=== PATIENT | male | born 1975 | race Hispanic/Latino ===

== ENCOUNTER 2018-07-23 08:42 | Emergency (ER) | payer OTHER ==
[2018-07-23 09:39] LABS: BASOPHILS % (AUTO) 0.4 % (0.0-5.0); EOSINOPHILS % (AUTO) 1.5 % (0.0-8.0); HEMATOCRIT 45.1 % (42-54); LYMPHOCYTES % (AUTO) 30.3 % (21.0-51.0); MEAN CORPUSCULAR HEMOGLOBIN 30.1 pg (27.0-33.0); MEAN CORPUSCULAR HGB CONC 33.5 g/dL (32.0-36.0); MEAN CORPUSCULAR VOLUME 89.8 fL (79-99); MONOCYTES % (AUTO) 10.8 % (3.0-13.0); PLATELET COUNT (AUTO) 216 K/uL (130-400); RED BLOOD CELL COUNT(AUTO) 5.02 MIL/uL (4.50-6.20); RED CELL DISTRIBUTION WIDTH 12.9 % (11.0-15.5); WHITE BLOOD COUNT (AUTO) 5.8 K/uL (4.8-10.8)
[2018-07-23 09:40] LABS: APPEARANCE,URINE CLEAR (CLEAR); BILIRUBIN,URINE NEGATIVE (NEGATIVE); COLOR,URINE YELLOW (YELLOW); GLUCOSE, URINE (UA) NEGATIVE (NEGATIVE); KETONES,URINE NEGATIVE (NEGATIVE); LEUKOCYTE ESTERASE ,URINE NEGATIVE (NEGATIVE); NITRATE,URINE NEGATIVE (NEGATIVE); OCCULT BLOOD,URINE NEGATIVE (NEGATIVE); PROTEIN,URINE NEGATIVE (NEGATIVE); UROBILINOGEN,URINE 0.2 mg/dL (0.2-1.0)
[2018-07-23 09:47] LABS: CREATININE 0.9 mg/dL (0.5-1.5); POTASSIUM 4.3 mmol/L (3.5-5.1)
[2018-07-23 09:48] LABS: AMPHET/METH SCREEN,URINE NEGATIVE (NEGATIVE); BARBITURATE SCREEN, URINE NEGATIVE (NEGATIVE); BENZODIAZEPINES SCREEN,URINE NEGATIVE (NEGATIVE); CANNABINOID SCREEN,URINE NEGATIVE (NEGATIVE); COCAINE SCREEN,URINE NEGATIVE (NEGATIVE); OPIATE SCREEN,URINE NEGATIVE (NEGATIVE); PHENCYCLIDINE SCREEN,URINE NEGATIVE (NEGATIVE)
[2018-07-23 09:52] LABS: ALBUMIN 3.6 g/dL (3.5-5.0); BILIRUBIN,DIRECT 0.1 mg/dL (0.0-0.3); BILIRUBIN,TOTAL 0.3 mg/dL (0.2-1.0)
[2018-07-23] MEDS ORDERED: FAMOTIDINE 20MG TAB 20 MG TAB ONE (09:56)
[2018-07-23] MEDS ORDERED: DICYCLOMINE HCL 10 MG/ML 2ML AMP IM ONE (09:56)
== END 2018-07-23 10:48 | disposition home or self-care (01) ==
LOC: EDH 08:42
DX: K52.9 Noninfective gastroenteritis and colitis, unspecified (principal); I10 Essential (primary) hypertension
CPT/HCPCS: 36415; 80048; 80076; 80305; 81003; 83690; 85025; 96372; 99284; J0500

== ENCOUNTER 2021-05-20 20:30 | Emergency (ER) | payer OTHER, SELFPAY ==
[~2021-05-20] VITALS: Ht 175.3 cm; Wt 93.0 kg
[2021-05-20 21:17] LABS: BASOPHILS % (AUTO) 0.3 % (0.0-5.0); HEMATOCRIT 48.2 % (42-54); LYMPHOCYTES % (AUTO) 4.6 % (21.0-51.0); MEAN CORPUSCULAR HEMOGLOBIN 29.4 pg (27.0-33.0); MEAN CORPUSCULAR HGB CONC 32.2 g/dL (32.0-36.0); MEAN CORPUSCULAR VOLUME 91.5 fL (79-99); MONOCYTES % (AUTO) 3.2 % (3.0-13.0); NEUTROPHILS % (AUTO) 91.4 % (40.0-77.0); PLATELET COUNT (AUTO) 301 K/uL (130-400); RED BLOOD CELL COUNT(AUTO) 5.27 MIL/uL (4.50-6.20); RED CELL DISTRIBUTION WIDTH 12.7 % (11.0-15.5)
[2021-05-20 21:22] LABS: APPEARANCE,URINE CLEAR (CLEAR); BILIRUBIN,URINE SMALL (NEGATIVE); COLOR,URINE YELLOW (YELLOW); GLUCOSE, URINE (UA) NEGATIVE (NEGATIVE); KETONES,URINE NEGATIVE (NEGATIVE); LEUKOCYTE ESTERASE ,URINE NEGATIVE (NEGATIVE); NITRATE,URINE NEGATIVE (NEGATIVE); OCCULT BLOOD,URINE NEGATIVE (NEGATIVE); PH,URINE 5.5 (5.0-8.0); PROTEIN,URINE TRACE mg/dL (NEGATIVE)
[2021-05-20 21:27] LABS: POTASSIUM 3.9 mmol/L (3.5-5.1)
[2021-05-20] MEDS ORDERED: FAMOTIDINE 20MG VIAL IV ONE (21:30)
[2021-05-20] MEDS ORDERED: 0.9%NACL 1000ML 1,000 ML IV ONE ×2 (21:30→22:00)
[2021-05-20] MEDS ORDERED: DICYCLOMINE 20MG (10MG/ML) AMP IM ONE (21:30)
[2021-05-20] MEDS ORDERED: ONDANSETRON 4MG INJ IVP ONE (21:30)
[2021-05-20 21:31] LABS: ALBUMIN 4.6 g/dL (3.5-5.0); BILIRUBIN,TOTAL 0.4 mg/dL (0.2-1.0); RBC,URINE None Seen /HPF (0-1); TOTAL PROTEIN, SERUM 8.7 g/dL (6.0-8.3)
[2021-05-20 21:32] LABS: BACTERIA,URINE None Seen /HPF (None Seen); MUCUS,URINE Many LPF (None Seen); SQUAMOUS EPITHELIAL CELL,UR Rare /HPF (0-2); WBC,URINE None Seen /HPF (0-1)
[2021-05-20 21:35] LABS: EOSINOPHILS % (MANUAL) 2 % (1-6); LYMPHOCYTES % (MANUAL) 7 % (22-44); MAN.DIFF COMMENT-IMPRESSION MANUAL DIFFERENTIAL; MONOCYTES % (MANUAL) 4 % (2-9); PLATELET MORPHOLOGY COMMENT ADEQUATE; SEGMENTED NEUTROPHILS % 87 % (40-70)
[2021-05-20] MEDS ORDERED: IOHEXOL 350 MG/ML 100ML INFUS..BTL IV ONE (21:53)
[2021-05-20 23:37] LABS: BASOPHILS % (AUTO) 0.3 % (0.0-5.0); HEMATOCRIT 41.7 % (42-54); LYMPHOCYTES % (AUTO) 2.4 % (21.0-51.0); MEAN CORPUSCULAR HEMOGLOBIN 29.5 pg (27.0-33.0); MEAN CORPUSCULAR HGB CONC 31.7 g/dL (32.0-36.0); MEAN CORPUSCULAR VOLUME 93.3 fL (79-99); MONOCYTES % (AUTO) 5.2 % (3.0-13.0); NEUTROPHILS % (AUTO) 91.6 % (40.0-77.0); PLATELET COUNT (AUTO) 278 K/uL (130-400); RED BLOOD CELL COUNT(AUTO) 4.47 MIL/uL (4.50-6.20); RED CELL DISTRIBUTION WIDTH 12.7 % (11.0-15.5); WHITE BLOOD COUNT (AUTO) 25.8 K/uL (4.8-10.8)
[2021-05-21] MEDS ORDERED: 0.9%NACL 1000ML 1,000 ML IV ONE (00:30)
[2021-05-21] MEDS ORDERED: LEVOFLOXACIN 750 MG/D5W 150 ML 150 ML ONE (00:49)
[2021-05-21] MEDS ORDERED: METO-296 PO (02:04)
[2021-05-21] MEDS ORDERED: HYOS-28 PO (02:04)
[2021-05-21] MEDS ORDERED: DICY20TA2 PO (02:04)
[2021-05-21] MEDS ORDERED: ONDA4TAB10 PO (02:04)
[2021-05-21] MEDS ORDERED: CIPR-278 PO (02:04)
[2021-05-21 03:00] VITALS: BP 108/69
[2021-05-21] MEDS ORDERED: LEVOFLOXACIN 750 MG/D5W 150 ML 150 ML IV ONE (09:00)
== END 2021-05-21 03:10 | disposition home or self-care (01) ==
LOC: EDH 20:30
DX: A09 Infectious gastroenteritis and colitis, unspecified (principal); D72.829 Elevated white blood cell count, unspecified; A05.9 Bacterial foodborne intoxication, unspecified; E86.9 Volume depletion, unspecified; R10.13 Epigastric pain; I10 Essential (primary) hypertension; Z98.890 Other specified postprocedural states
CPT/HCPCS: 36415; 74177; 80053; 81001; 83605 ×2; 83690; 85025 ×2; 87040 ×2; 96361 ×2; 96365; 96372; 96375; 99285; J0500; J1956; J2405; J3490; J7030 ×2; Q9967

== ENCOUNTER 2023-08-11 23:30 | Emergency (ER) | payer BC, OTHER ==
[~2023-08-11] VITALS: Ht 175.3 cm; Wt 94.3 kg
[~2023-08-11 23:30] MED LIST: CIPR-278 PO; DICY20TA2 PO; HYOS-28 PO; METO-296 PO; ONDA-243 PO
[2023-08-12] MEDS ORDERED: KETO10TA2 PO (01:28)
[2023-08-12] MEDS: TRIAMCINOLONE ACETONIDE 40 MG/ML 1ML VIAL IM ONE (01:33)
[2023-08-12] MEDS: ORPHENADRINE CITRATE 30 MG/ML ML IM ONE (01:33)
[2023-08-12] MEDS: MORPHINE 2 MG SYG IVP ONE (01:34)
[2023-08-12] MEDS: ONDANSETRON 4MG INJ IVP ONE (01:34)
[2023-08-12] MEDS ORDERED: CYCL7.5T27 PO (02:19)
[2023-08-12 02:21] VITALS: BP 131/87; PULSE 74; RESP 16; O2SAT 98
== END 2023-08-12 02:25 | disposition home or self-care (01) ==
LOC: EDH 23:30
DX: S29.012A Strain of muscle and tendon of back wall of thorax, initial encounter (principal); I10 Essential (primary) hypertension; X58.XXXA Exposure to other specified factors, initial encounter; Y93.89 Activity, other specified; Y92.89 Other specified places as the place of occurrence of the external cause; Y99.8 Other external cause status
CPT/HCPCS: 99284; 96372 ×2; J3301; J2360